=== PATIENT | male | born 2000 | race African-American/Black ===

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

== ENCOUNTER 2018-05-21 02:39 | Emergency (ER) | payer MEDICAID ==
[~2018-05-21] VITALS: Ht 182.9 cm; Wt 99.8 kg
[2018-05-21 02:46] VITALS: BP 130/74
== END 2018-05-21 07:35 | disposition home or self-care (01) ==
LOC: ER 02:39
DX: S00.11XA Contusion of right eyelid and periocular area, initial encounter (principal); W50.0XXA Accidental hit or strike by another person, initial encounter; Y93.89 Activity, other specified; Y99.8 Other external cause status; Y92.89 Other specified places as the place of occurrence of the external cause
CPT/HCPCS: 70200